=== PATIENT | female | born 1985 | race Caucasian/White ===

== ENCOUNTER 2020-05-10 16:54 | Inpatient (IN) | payer BC ==
[2020-05-10] VITALS (14 sets, daily range): BP systolic 116–160; BP diastolic 58–113; PULSE 80–105; TEMP 97.6
[~2020-05-10] VITALS: Ht 160 cm; Wt 83.2 kg
[~2020-05-10 16:54] MED LIST changes: -MOTRIN 800800 MG/TAB PO; -PERCOCET 325 MG1 TA2 PO; -PRENATAL TABLET PO
--- NOTE | 2020-05-10 16:57 | NUR ---
Pt arrives on unit ambulatory with RN. States ctx that became intense lasting 3-5 minutes apart for 2 hours at 1500 after membrane sweeping in office at 0900. Denies vaginal bleeind or LOF. Difficulty determining movement with ctx. Breathing through ctx well using "gentle ." Plans for hypno and compression points. Changed into clean gown. EFM and toco applied. VSS. SVE per this RN /-1. Admission assessment completed. Dr. Damico notified. Orders to observe x1 hour and recheck SVE. Ok for intermittent monitoring. Pt updated on POC. Bed locked in low position. Given birthing ball. No questions or concerns at this time.
--- NOTE | 2020-05-10 17:16 | NUR ---
PT HERE FOR LABOR CHECK. CONTRACTIONS STARTED AROUND 10:30AM TODAY AND HAVE BEEN INCREASING IN INTENSITY THROUGHOUT THE DAY. SAW DR JONES AT 9AM AND WAS DILATED /-2. SVE HERE BY JASSON RN, 1 WITH BULGING BAG OF FLUID. PT BREATHING THROUGH CONTRACTIONS WHICH ARE OCCURRING EVERY 2-3 MINUTES. FHT'S IN THE 140'S WITH MODERATE VARIABILITY. PHONED DR FINK WITH ORDERS RECEIVED TO MONITOR FOR ONE HOUR AND RECHECK CERVIX. DISCUSSED PLAN OF CARE WITH PT AND .
[2020-05-10] MEDS ORDERED: PRENATAL TABLET PO (17:26)
--- NOTE | 2020-05-10 18:25 | NUR ---
182- THIS RN TO BEDSIDE FOR REPORT. PATIENT HAS NO IV ACCESS DUE TO ANOTHER NURSE ATTEMPTING TWICE. 182- PT. REQUESTING TO USE RESTROOM. THIS RN HELPED PT. TO BATHROOM. 182- PT. BACK TO BED. THIS RN HELPED PT. INTO BED AND EFM AND TOCO ON AND TRACING. RN TO LOOK FOR IV ACCESS. 183- DR. FINK TO BEDSIDE TO BREAK WATER. 183- SVE /-1 PER THE DOCTOR. 183- AROM WITH SMALL AMOUNT OF CLEAR FLUID NOTED. PT. TOLERATED PROCEDURE WELL. DR. FINK REMAINS IN ROOM. 183- THIS RN ATTEMPTED IV ACCESS AND IT WAS UNSUCCESSFUL. 183- THIS RN ATTEMPTED IV ACCESS AND IT WAS UNSUCCESSFUL. 184- DONNIE RN AND ANT MARQUEZ TO BEDSIDE TO HELP WITH POSITION CHANGES AND IV ACCESS DUE TO FHR HAVING SEVERE DECELERATIONS INTO THE 70S WITH CONTRACTIONS. 184- IV ACCESS TO LEFT WRIST BY ANT FIELDS. LR #1 WIDE OPEN. 1848- ANESTHESIA WAS CALLED BY ANT MARQUEZPOLLUTION CONTROL CHEMIST TO BE AVAILABLE IN CASE WE NEEDED HER. 1851- PT. HELPED TO HANDS AND KNEES POSITION. ALL RNS AND DOCTOR REMAIN AT BEDSIDE HELPING. 185- SCALP ELECTRODE PUT IN BY THE PROVIDER DUE TO FHR TRACING NOT TRACING WELL DUE TO MATERNAL POSITION. FSE HAVING A LOT OF ARTIFACT SO THIS RN STILL ADJUSTING EFM TO GET FHR TRACING. 1900- LAB DRAWING BLOOD AT THIS TIME. PT. TOLERATED PROCEDURE WELL. 1910- PT. HELPED TO WEDGED LEFT POSITION TO READJUST FSE. 1912- PT. UNCOMFORTABLE AND NOT WELL CONTROLLED IN THIS POSITION. PT. REPOSITIONED TO RIGHT LEG IN THE STIRRUP. 1914- DR. FINK LEFT ROOM AND STAYED ON UNIT AT DESK TO REVIEW STRIP. 1915- PT. UNCOMFORTABLE IN THIS POSITION AND CHANGED TO PEANUTBALL INSTEAD OF STIRRUP. 1919- LR #2 HANGING AND WIDE OPEN. 1932- PT. NO LONGER COMFORTABLE AND HAVING TROUBLE STAYING IN CONTROL. PT. STANDING AT SIDE OF BED. 1934- PT. GOES INTO KNEE CHEST POSITION AND STATES IT IS MORE COMFORTABLE. 1939- ALEKS TO BEDSIDE TO CHECK ON PATIENT. 1944- PT. REPOSITIONS HERSELF TO STANDING AND LEANING HER FOREARMS AND CHEST ONTO BED. PT. DR. FINK CHECKS PT. AT THIS TIME, SVE UNCHANGED. 1949- PT. STATES SHE WANTS AND EPIDURAL. ALEKS LEAVES ROOM TO LET ANESTHESIA KNOW AND STAYS ON UNIT REVIEWING STRIP. THIS RN REMAINS WITH PT. THIS ENTIRE TIME. 1956- PT. REPOSITIONED INTO LEFT LYING PEANUT BALL WHILE WAITING FOR ANESTHESIA. 2006- CEE, LULU TO BEDSIDE FOR EPIDURAL. PT. AND ROOM SET UP FOR EPIDURAL PLACEMENT. 2017- TEST DOSE, SEE ANESTHESIA RECORD. PT. TOLERATED PROCEDURE WELL. 2027- PT. REPOSITIONED TO WEDGED LEFT POSITION IN BED. GETTING COMFORTABLE WITH EPIDURAL. ANT MARQUEZPOLLUTION CONTROL CHEMIST NURSE RELIEVES THIS NURSE SO SHE CAN CHART AND GET PAPERWORK TOGETHER.
[2020-05-10 19:15] LABS: BASO % 0.2 % (0.0-2.0); EOS % 0.1 % (0-4.0); GRAN # 14.5 (1.4-6.5); GRAN % 79.2 % (42.2-75.2); HEMATOCRIT 36.4 % (37.0-47.0); LYMPH # 2.3 (1.2-3.4); LYMPH % 12.7 % (20.0-51.0); MEAN CELL VOLUME 90 fl (80.0-100.0); MEAN CORPUSCULAR HEMOGLOBIN 32 pg (27.0-31.0); MEAN CORPUSCULAR HGB CONC 36 g/dl (33.0-37.0); MEAN PLATELET VOLUME 11.1 fl (7.4-10.4); MONO # 1.3 (0.1-0.6); MONO % 7.3 % (1.7-9.3); PLATELET COUNT 162 K/mm3 (130-400); RED BLOOD COUNT 4.06 M/mm3 (4.10-5.30); REDCELL DISTRIBUTION WIDTH-CV 12.8 % (11.5-14.5)
--- NOTE | 2020-05-10 21:05 | NUR ---
Pt relaxed, comfortable. Plan of care reviewed ie davey catheter placement, SVE. Pt turned to supine for davey catheter placement, FHT's to 100's with peak of contraction, returns to baseline by end of contractions. Davey catheter placed with immediate return of red tinged urine, pericare performwe. to wedge L.
--- NOTE | 2020-05-10 22:00 | NUR ---
2199- THIS RN TO BEDSIDE FOR SVE. 2201- SVE 8/90/0. RN HELPING MOTHER BACK TO SEMI FOWLERS POSITION AND WEDGED LEFT. 2202- FHR TRACING DECELERATION DOWN. THIS RN HELPED PATIENT TO LL POSITION. 2203 - ANT MARQUEZSENIOR COMMUNICATIONS SPECIALIST TO BEDSIDE TO HELP. PT. PLACED TO RL POSITION. 2204- PT. CHANGED TO LL POSITION. 2205- FHR TRACING BACK INTO 120 RANGE AND CLIMBING. THIS RN STEPPED OUT TO CALL DR. FINK, SEE PHYSICIAN NOTIFICATION.
--- NOTE | 2020-05-10 22:27 | NUR ---
2226- DR. FINK TO BEDSIDE FOR EVALUTATION. 2227- SVE UNCHANGED AND STILL . DR. FINK THEN STARTS TO DISCUSS OPTION WITH PATIENT AND SPOUSE AND THE RISKS AND BENEFITS, HE ANSWERS ALL QUESTIONS. 2239- ANESTHESIA TO BEDSIDE TO DISCUSS AND GIVE MEDS. PT AND SPOUSE PREPPED FOR SECTION. 2247- PT. DISCONNECTED FROM MONITORS AND WHEELED BACK TO THE OPERATING ROOM.
[2020-05-11] VITALS (16 sets, daily range): BP systolic 84–132; BP diastolic 48–80; PULSE 72–88; TEMP 97.9–98.3
[2020-05-11] MEDS ORDERED: MOTRIN 800800 MG/TAB PO (09:24)
[2020-05-11] MEDS ORDERED: PERCOCET 325 MG1 TA2 PO (09:24)
[2020-05-12 09:00] VITALS: BP 117/78; PULSE 72; TEMP 97.6
--- NOTE | 2020-05-12 09:03 | NUR ---
Follow-up visit; Parents thanked Sheriff'S Detective for offering congratulations and God's blessings for the of their son. Sheriff'S Detective thanked family for choosing [facility].
[2020-05-12 20:00] VITALS: BP 117/84; PULSE 69; TEMP 97.6
[2020-05-13 07:39] VITALS: BP 134/85; PULSE 69; TEMP 98
== END 2020-05-13 10:52 | disposition home or self-care (01) | DRG 788 ==
LOC: LDRO 16:54 → LDR 18:06 → OB 23:04
PROVIDERS: Obstetrics & Gynecology; ADMIT Obstetrics & Gynecology
PROC: 10D00Z1 Extraction of Products of Conception, Low, Open Approach (ICD-10-PCS; principal; 2020-05-10)
DX: O76 Abnormality in fetal heart rate and rhythm complicating labor and delivery (principal); O62.0 Primary inadequate contractions; O69.81X0 Labor and delivery complicated by cord around neck, without compression, not applicable or unspecified; Z3A.40 40 weeks gestation of pregnancy; Z37.0 Single live birth; Z88.0 Allergy status to penicillin
CPT/HCPCS: J1580; J1885; J2400; J2405; J2590; J7120

== ENCOUNTER → 2020-05-10 | Outpatient (CLI) | payer BC ==
[~2020-05-10] MED LIST: BIRTH CONTROL; MOTRIN 800800 MG/TAB PO; PERCOCET 325 MG1 TA2 PO; PRENATAL TABLET PO
== END | disposition still patient (30) ==
LOC: ZCOL.LAB 02:02
DX: Z20.828 Contact with and (suspected) exposure to other viral communicable diseases (principal)

== ENCOUNTER 2022-02-17 18:28 | Inpatient (IN) | payer BC ==
[~2022-02-17] VITALS: Ht 154.9 cm; Wt 78.6 kg
[~2022-02-17 18:28] MED LIST changes: +MOTRIN 800800 MG/TAB PO; +PERCOCET 325 MG1 TA2 PO; +PRENATAL TABLET PO
[2022-02-20] VITALS (17 sets, daily range): BP systolic 112–140; BP diastolic 48–93; PULSE 59–93; TEMP 97.6–98.1
[2022-02-20 11:18] LABS: BASO % 0.2 % (0.0-2.0); EOS # 0.1 K/mm3 (0.0-0.7); EOS % 0.8 % (0.0-4.0); GRAN # 6.1 K/mm3 (1.4-6.5); GRAN % 59.8 % (42.2-75.2); HEMATOCRIT 38.1 % (37.0-47.0); HEMOGLOBIN 12.7 g/dl (12.5-16.0); LYMPH # 3.1 K/mm3 (1.2-3.4); LYMPH % 30.4 % (20.0-51.0); MEAN CELL VOLUME 86 fl (80.0-100.0); MEAN CORPUSCULAR HEMOGLOBIN 29 pg (27-31); MEAN CORPUSCULAR HGB CONC 33 g/dl (33.0-37.0); MEAN PLATELET VOLUME 11.2 fl (7.4-10.4); MONO # 0.8 K/mm3 (0.1-0.6); PLATELET COUNT 192 K/mm3 (130-400); RED BLOOD COUNT 4.44 M/mm3 (4.10-5.30); REDCELL DISTRIBUTION WIDTH-CV 13.2 % (11.5-14.5)
[2022-02-20] MEDS ORDERED: MOTRIN 800800 MG/TAB PO (18:56)
[2022-02-20] MEDS ORDERED: PERCOCET 325 MG1 TA2 PO (18:56)
[2022-02-21 00:27] VITALS: BP 115/62; PULSE 64; TEMP 97.8
[2022-02-21 05:05] VITALS: BP 114/65; PULSE 64; TEMP 97
[2022-02-21 07:40] VITALS: BP 119/69; PULSE 63; TEMP 97.4
--- NOTE | 2022-02-21 10:02 | NUR ---
Initial visit; Parents thanked ticket maker for offering congratulations and God's blessings for the of their daughter. Inspector Metal Can thanked family for choosing [facility].
[2022-02-21 16:28] VITALS: BP 105/67; PULSE 78
[2022-02-21 20:30] VITALS: BP 108/65; PULSE 75; TEMP 98.1
[2022-02-22 07:30] VITALS: BP 123/77; PULSE 64; TEMP 97.6
--- NOTE | 2022-02-22 17:16 | NUR ---
1400 PT UP AND IN SHOWER. DRESSING OFF. INCISION CLEAN, DRY, INTACT. PT TOLERATED SHOWER WELL.
[2022-02-22 21:15] VITALS: BP 113/68; PULSE 81; TEMP 97.8
[2022-02-23 08:07] VITALS: BP 132/72; PULSE 69; TEMP 97.8
== END 2022-02-23 10:50 | disposition home or self-care (01) | DRG 788 ==
LOC: OB 02-20 10:07
PROVIDERS: ADMIT Obstetrics & Gynecology
PROC: 10D00Z1 Extraction of Products of Conception, Low, Open Approach (ICD-10-PCS; principal; 2022-02-20)
DX: O34.211 Maternal care for low transverse scar from previous cesarean delivery (principal); O48.0 Post-term pregnancy; Z3A.40 40 weeks gestation of pregnancy; Z37.0 Single live birth; O99.344 Other mental disorders complicating childbirth; F41.9 Anxiety disorder, unspecified; F32.A Depression, unspecified; Z90.89 Acquired absence of other organs; Z88.1 Allergy status to other antibiotic agents; Z88.0 Allergy status to penicillin; Z88.8 Allergy status to other drugs, medicaments and biological substances
CPT/HCPCS: J0690; J1100; J1885; J2405; J2590; J2765; J7120